=== PATIENT | male | born 1965 | race Caucasian/White ===

== ENCOUNTER 2024-05-24 16:42 | Emergency (ER) | payer OTHER, SELFPAY ==
[2024-05-24 16:47] VITALS: BP 151/95
[2024-05-24 17:09] LABS: % Basophils 0.5 % (0-2); % Eosinophils 0.9 % (0-6); % Immature Granulocytes 0.1 % (0-0.5); % Monocytes 5.7 % (1.7-9.3); % Neutrophils 67.8 % (42.2-75.2); Absolute Eosinophils 0.1 10^3/uL (0-0.7); Absolute Lymphocytes 1.9 10^3/uL (1.2-3.4); Absolute Monocytes 0.4 10^3/uL (0.1-0.6); Absolute Neutrophils 5.2 10^3/uL (1.4-6.5); Hematocrit 42.2 % (39.0-52.0); Hemoglobin 15.2 g/dL (13.0-18.0); Mean Corpuscular Hgb 31.3 pg (27.0-31.0); Mean Platelet Volume 9.5 fL (7.4-10.4); Nucleated Red Blood Cells % 0 % (-); Platelet Count 196 10^3/uL (130-400); Red Blood Cell Count 4.85 10^6/uL (4.70-6.10); Red Cell Dist. Width 12.1 % (11.5-14.5); White Blood Cell Count 7.7 10^3/uL (4.8-10.8)
[2024-05-24 17:33] LABS: ALT (SGPT) 52 U/L (0-50); AST (SGOT) 44 U/L (17-59); Albumin 4.7 g/dl (3.5-5.0); Alkaline Phosphatase 105 U/L (38-126); Blood Urea Nitrogen 18 mg/dl (9-20); Calcium 9.9 mg/dl (8.4-10.2); Carbon Dioxide 24 mmol/L (22-30); Chloride 101 mmol/L (98-107); Glucose 127 mg/dl (70-99); Potassium 3.5 mmol/L (3.5-5.1); Sodium 136 mmol/L (135-145); Total Bilirubin 0.8 mg/dl (0.2-1.3); Total Protein 7.5 g/dl (6.3-8.2); eGFR > 60.00
[2024-05-24 18:00] VITALS: BP 150/77
--- NOTE | 2024-05-24 19:10 | ED.GENMED ---
History of Present Illness
General
Chief Complaint: Back Pain
Time Seen by Provider: 05/24/24 18:27
History of Present Illness
History of Present Illness:
58-year-old male presents to the emergency department for evaluation of persistent right flank pain ongoing for the past several weeks. He notices pain worsens at nighttime, states that at its most severe the pain does feel comparable to past past
kidney stone. Is never needed surgery for kidney stone. Denies any fevers or chills. Denies any anterior abdominal pain, postprandial pain, dysuria, or hematuria.
Past History
Past History
ED Past Medical History: HTN and Other (Kidney stone)
ED Past Surgical History: None
Social History
Tobacco: Non-smoker
Alcohol: Occasional
Drug: None
Personal:
Living: with family
Employment: Employed
Family History
Family History: Other (Noncontributory)
Review of Systems
Review of Systems
Allergies reviewed?: Yes
All Other Systems: ROS reviewed and negative except as documented in HPI and ROS
Phy Exam
Physical Exam
Physical Exam:
GEN: Well appearing, NAD, WDWN
HEENT: Oral mucosa moist, no scleral icterus
Cardiac: Regular rate
Lung: No respiratory distress, no tachypnea
Abdomen: Soft, nontender, negative Pulliam sign. No CVA tenderness bilaterally
MSK: No gross deformity or injuries
Skin: Good color, no pallor or jaundice, no rashes
Neuro: AO x3, moves all extremities freely
Psych: Calm, cooperative
Course
Orders/Labs/Results
Orders:
Orders
05/24/24 16:57
CMP [Comprehensive Metabolic Panel] Urgent
Complete Blood Count/With Diff Urgent
05/24/24 19:10
CT Abd/pel Without Iv Or Oral Urgent
Comment:
Reason For Exam: R flank pain
Abnormal Lab Results
05/24/24
16:57
MCH 31.3 H pg
(27.0-31.0)
Glucose 127 H mg/dl
(70-99)
ALT 52 H U/L
(0-50)
05/24/24 16:57
05/24/24 16:57
Vital Signs
Initial and Last Documented VS:
Initial Vital Signs
Temp Pulse Resp BP Pulse Ox
97.8 F 107 20 151/95 97
05/24/24 16:47 05/24/24 16:47 05/24/24 16:47 05/24/24 16:47 05/24/24 16:47
Last Documented Vital Signs
Temp Pulse Resp BP Pulse Ox
97.8 F 73 18 155/95 99
05/24/24 16:47 05/24/24 22:29 05/24/24 22:29 05/24/24 22:29 05/24/24 20:00
MDM/Problems Addressed
MDM/Problems Addressed:
Imaging shows no evidence for obstructive uropathy. He has no anterior abdominal tenderness worrisome for biliary colic. May be musculoskeletal etiology. Do not feel there is any indication for ultrasound at this time
*Critical Care Note
Total Time (30-74mins, 75-104mins- exclusive of procedures): Not Applicable
ED Attending Note
-
Portions of this chart may have been created with voice recognition software.� Occasional wrong word or��sound alike� substitutions may have occurred due to the inherent limitations of voice recognition software.
Discharge Plan
Departure
Patient Disposition: Home (Routine Discharge)
Date of Disposition: 05/24/24
Time of Disposition: 22:08
Patient with high blood pressure during this ER visit?: No
Discharge Problem:
Right flank pain
Instructions: Flank Pain ED
Prescriptions:
No Action
oxycodone-acetaminophen 5 MG/325 MG tablet
1 - 2 tab PO Q4HPRN PRN (Reason: pain) Qty: 20 0RF
tamsulosin 0.4 MG capsule
0.4 mg PO DAILY Qty: 15 0RF
irbesartan 150 MG tablet
150 mg PO DAILY
ondansetron 4 MG tablet,disintegrating
4 mg PO TIDPRN PRN (Reason: NAUSEA) Qty: 10 0RF
cephalexin [Keflex] 500 MG capsule
500 mg PO BID Qty: 14 0RF
Referrals:
Pauly Telles MD [Family Provider] -
Interventions
Interventions:
*Risk Screen - Suicide Last Done: 05/24/24 18:41
*General Assessment Last Done: 05/24/24 19:57
*Neglect/Abuse Screening Last Done: 05/24/24 18:41
*ED COVID-19 Vaccine History Last Done: 05/24/24 19:57
*Nursing Disposition Last Done: 05/24/24 22:29
ED-Musculoskeletal Assessment Last Done: 05/24/24 18:41
Discharge Date and Time
Discharge Date/Time: 05/24/24 22:30
Print Language: EQUATORIAL GUINEAN
[2024-05-24 20:00] VITALS: BP 169/95
[2024-05-24 22:05] VITALS: BP 155/95
[2024-05-24 22:29] VITALS: BP 155/95
== END 2024-05-24 22:30 | disposition home or self-care (01) ==
LOC: EMR 16:42
PROVIDERS: EMERGENCY PHYSICIAN Emergency Medicine; FAMILY PHYSICIAN Internal Medicine
DX: R10.9 Unspecified abdominal pain (principal)
CPT/HCPCS: 99284; 74176; 80053; 85025